=== PATIENT | male | born 2000 | race Caucasian/White ===

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

== ENCOUNTER 2019-01-17 15:34 | Emergency (ER) | payer OTHER, BC, MEDICAID ==
[2019-01-17] MEDS ORDERED: ONDANSETRON 4 MG TAB.RAPDIS PO ONE (16:01)
[2019-01-17] MEDS ORDERED: ACETAMINOPHEN 325 MG TABLET PO ONE (16:01)
--- NOTE | 2019-01-17 16:06 | ER Document Report ---
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 Patient fell off and hit his head on a milk crate in the floor. Patient is uncertain if he may have had a loss of consciousness. Patient does report nausea headache pain and left shoulder pain. Mother states that child has not been acting right and his been acting loopy which is different for him. Patient initially gave a recall of the events leading up to his fall and then reports that he did not know what he was doing in the cooler at work and what led up to his fall. I have greeted and performed a rapid initial assessment of this patient. A comprehensive ED assessment and evaluation of the patient, analysis of test results and completion of the medical decision making process will be conducted by additional ED providers. TRAVEL OUTSIDE OF THE [place] IN LAST 30 DAYS: No - Related Data Allergies/Adverse Reactions: Sulfa (Sulfonamide Antibiotics) Allergy (Verified 10/28/18 14:33) Past Medical History Renal/ Medical History: Denies: Hx Peritoneal Dialysis Psychiatric Medical History: Reports: Hx Attention Deficit Hyperactivity Disorder Physical Exam - Vital signs Vitals: Temp Pulse Resp BP Pulse Ox 98.8 F 63 18 133/58 H 97 01/17/19 15:37 01/17/19 15:37 01/17/19 15:37 01/17/19 15:37 01/17/19 15:37 - Neurological [place] Coma Scale Eye Opening: Spontaneous [place] Coma Scale Motor: Obeys Commands Notes: Patient initially gave a perfect recall of the events leading up to his fall, patient did later reports that he does not know what he was doing at work prior to his fall. Course - Vital Signs Vital signs: Temp Pulse Resp BP Pulse Ox 98.8 F 63 18 133/58 H 97 01/17/19 15:37 01/17/19 15:37 01/17/19 15:37 01/17/19 15:37 01/17/19 15:37
--- NOTE | 2019-01-17 16:47 | RADIOLOGY REPORT (SQ) ---
EXAM DESCRIPTION: SHOULDER LEFT 2 OR MORE VIEWS COMPLETED DATE/TIME: 01/17/2019 4:16 pm REASON FOR STUDY: fall, L shoulder pain COMPARISON: None. NUMBER OF VIEWS: Three views. TECHNIQUE: Internal rotation, external rotation, and Y view images acquired of the left shoulder. LIMITATIONS: None. FINDINGS: MINERALIZATION: Normal. BONES: No acute fracture or dislocation. No worrisome bone lesions. JOINTS: No dislocation. VISUALIZED LUNGS AND RIBS: No pneumothorax. No rib fracture. SOFT TISSUES: No radiopaque foreign body. OTHER: No other significant finding. IMPRESSION: NO RADIOGRAPHIC EVIDENCE OF ACUTE INJURY. TECHNICAL DOCUMENTATION: JOB ID: [id number] [employer]- All Rights Reserved Reading location - IP/workstation name: [email or web address]
--- NOTE | 2019-01-17 16:50 | RADIOLOGY REPORT (SQ) ---
EXAM DESCRIPTION: CT HEAD WITHOUT COMPLETED DATE/TIME: 01/17/2019 4:31 pm REASON FOR STUDY: fall, [place] COMPARISON: None. TECHNIQUE: Axial images acquired through the brain without intravenous contrast. Images reviewed wi th bone, brain and subdural windows. Images stored on PACS. All CT scanners at this facility use dose modulation, iterative reconstruction, and/or weight based d osing when appropriate to reduce radiation dose to as low as reasonably achievable (ALARA). [facility]: Dose Right [facility]: CareDose [facility]: Dose Right [facility]: Teradose 4D [facility]: STAR FESTIVAL RADIATION DOSE: CT Rad equipment meets quality standard of care and radiation dose reduction techniq ues were employed. CTDIvol: 53.2 mGy. DLP: 1017 mGy-cm. mGy. LIMITATIONS: None. FINDINGS: VENTRICLES: Normal size and contour. CEREBRUM: No masses. No hemorrhage. No midline shift. No evidence for acute infarction. Normal gra y/white matter differentiation. No areas of low density in the white matter. CEREBELLUM: No masses. No hemorrhage. No alteration of density. No evidence for acute infarction. EXTRAAXIAL SPACES: No fluid collections. No masses. ORBITS AND GLOBE: No intra- or extraconal masses. Normal contour of globe without masses. CALVARIUM: No fracture. PARANASAL SINUSES: No fluid or mucosal thickening. SOFT TISSUES: No mass or hematoma. OTHER: No other significant finding. IMPRESSION: No acute intracranial findings. EVIDENCE OF ACUTE STROKE: NO. COMMENT: Quality ID # [id number]: Final reports with documentation of one or more dose reduction techniques (e.g., Automated exposure control, adjustment of the mA and/or kV according to patient size, use of iterative reconstruction technique) TECHNICAL DOCUMENTATION: JOB ID: [id number] [employer]- All Rights Reserved Reading location - IP/workstation name: [email or web address]
--- NOTE | 2019-01-17 19:26 | ER Document Report ---
ED General - General Chief Complaint: Closed Head Injury Stated Complaint: POSSIBLE HEAD INJURY Time Seen by Provider: 01/17/19 16:01 Mode of Arrival: Ambulatory Notes: Patient is a 18-year-old male who presents emergency department with a chief complaint of a headache. He was at work and he was on a stepladder about 3 to 4 feet in the air and he fell and hit his head on a milk crate or the concrete. He is not sure which one. He states that he has had some confusion. His mother is at bedside and said he was not acting appropriately. He is not sure as to whether or not he lost consciousness. There is no laceration noted anywhere. He also notes that he feels his whole head on the inside hurts. He also has left shoulder pain. He has no past medical history. He does not take any medications. Denies any loss of sensation, loss of motor function, loss of bladder or bowel function, or any other complaints. TRAVEL OUTSIDE OF THE [place] IN LAST 30 DAYS: No - Related Data Allergies/Adverse Reactions: Sulfa (Sulfonamide Antibiotics) Allergy (Verified 10/28/18 14:33) Past Medical History - General Information source: Patient, Parent - Social History Smoking Status: Unknown if Ever Smoked Chew tobacco use (# tins/day): No Frequency of alcohol use: None Drug Abuse: None Family History: Reviewed & Not Pertinent Patient has suicidal ideation: No Patient has homicidal ideation: No Renal/ Medical History: Denies: Hx Peritoneal Dialysis Psychiatric Medical History: Reports: Hx Attention Deficit Hyperactivity Disorder Review of Systems - Review of Systems Notes: REVIEW OF SYSTEMS: CONSTITUTIONAL : Denies recent illness. Denies recent unintentional weight loss. Denies fever, chills, or sweats. EENT: Denies eye, ear, throat, or mouth pain, discharge, or symptoms. Denies nasal or sinus congestion. CARDIOVASCULAR: Denies chest pain. RESPIRATORY: Denies shortness of breath, cough, congestion, difficulty breathing, or wheezing. GASTROINTESTINAL: Denies nausea, vomiting, and diarrhea. Denies abdominal pain. Denies constipation. GENITOURINARY: Denies difficulty urinating, burning, blood in urine, urgency or frequency. MUSCULOSKELETAL: See HPI SKIN: Denies rash, itchiness, or lesions HEMATOLOGIC : Denies easy bruising or bleeding. LYMPHATIC: Denies swollen, painful, enlarged glands. NEUROLOGICAL: See HPI PSYCHIATRIC: Denies stress, anxiety, alteration in sleep patterns, or depression. All other systems reviewed and negative. Physical Exam - Vital signs Vitals: Temp Pulse Resp BP Pulse Ox 98.8 F 63 18 133/58 H 97 01/17/19 15:37 01/17/19 15:37 01/17/19 15:37 01/17/19 15:37 01/17/19 15:37 - Notes Notes: PHYSICAL EXAMINATION: GENERAL: Appears well, healthy, well-nourished, no acute distress. HEAD: Normocephalic, atraumatic. EYES: PERRL, conjunctiva normal, all extraocular movements intact, sclera nonicteric ENT: Moist mucous membranes. NECK: Supple, no noticeable swelling, redness, rash. Normal range of motion. LUNGS: Equal breath sounds bilaterally and clear to auscultation. No wheezes rales or rhonchi. CARDIOVASCULAR: S1-S2, regular rate, regular rhythm. Radial pulses 2+, normal. ABDOMEN: Normoactive bowel sounds. Soft, nontender, no guarding, no rebound tenderness, and no masses palpated. EXTREMITIES: Normal strength and range of motion, no pitting or edema. No cyanosis. NEUROLOGICAL: Moves all extremities upon command. Strength 5/5 in all extremities. PSYCH: Normal mood, normal affect. SKIN: Warm, dry. No rash, lesions, ulcerations noted. Normal skin turgor. Course - Re-evaluation Re-evalutation: 01/17/19 19:45 CT of the head and left shoulder x-ray that was ordered and triage are both negative. He most likely suffered a concussion. I discussed signs and symptoms of a concussion with the mother and patient. Follow-up precautions were given. He will follow-up with his primary care provider for Workmen's Compensation. I do not suspect the patient has any life-threatening etiology at this time. Full neurological exam is intact. No neurological deficits noted. Verbal discharge instructions were given to the patient. They verbalized understanding. They are stable for discharge. - Vital Signs Vital signs: Temp Pulse Resp BP Pulse Ox 98.8 F 63 18 133/58 H 97 01/17/19 15:37 01/17/19 15:37 01/17/19 15:37 01/17/19 15:37 01/17/19 15:37 Discharge - Discharge Clinical Impression: Fall Qualifiers: Encounter type: initial encounter Qualified Code(s): W19.XXXA - Unspecified fall, initial encounter Concussion Qualifiers: Encounter type: initial encounter Loss of consciousness presence/duration: with LOC of unspecified duration Qualified Code(s): S06.0X9A - Concussion with loss of consciousness of unspecified duration, initial encounter Condition: Stable Disposition: HOME, SELF-CARE Additional Instructions: You were seen today in the emergency department after a fall. Your x-ray and CT scan are normal. You most likely suffered a concussion. You can take Tylenol 1000 mg every 6 hours for your pain. Please follow-up with your primary care provider in regards to this visit. Please fill out your Workmen's Compensation. Concussion You have suffered a concussion -- a temporary loss of certain brain functions due to a mild brain injury. The recovery is usually rapid and complete. The temporary problems occurring with a concussion can include loss of consciousness, dizziness, nausea, vomiting, and confusion. Repeat concussions can cause brain damage. In the future, avoid activities that will cause a blow to your head. Wear a helmet for sports such as snowboarding, biking, or skating. It's important that someone be with you for the first 24 hours. During this time, do not exercise or drive a vehicle. Do not take any pain medication stronger than acetaminophen unless prescribed by the physician. Any significant changes should be reported immediately to the physician. Signs of a problem may include: (1) Mental confusion (2) Incoordination or staggering (3) Repeated or forceful vomiting (4) Clear or bloody drainage from ear, mouth, or nose (5) Severe headache, not relieved by acetaminophen or prescribed pain medication (6) Failure to improve in 24 hours
[2019-01-17 20:26] VITALS: BP 118/62
== END 2019-01-17 20:25 | disposition home or self-care (01) ==
LOC: ER 15:34
DX: S06.0X9A Concussion with loss of consciousness of unspecified duration, initial encounter (principal); R51 Headache; M25.512 Pain in left shoulder; R41.0 Disorientation, unspecified; W11.XXXA Fall on and from ladder, initial encounter; Y93.89 Activity, other specified; Y92.524 Gas station as the place of occurrence of the external cause; Y99.0 Civilian activity done for income or pay; Z88.2 Allergy status to sulfonamides
CPT/HCPCS: 99284; 73030; 70450; S0119

== ENCOUNTER 2020-05-17 17:18 | Emergency (ER) | payer BC, MEDICAID ==
[2020-05-17 17:32] VITALS: BP 142/78
--- NOTE | 2020-05-17 18:40 | ER Document Report ---
HPI - HPI Time Seen by Provider: 05/17/20 17:30 Pain Level: 2 Notes: 19-year-old male patient presents emergency department chief complaint of right ear pain. Patient reports this is been ongoing for about a week now. He states he is tried taking cyoh-xly-owobtwu medications without relief. He states he now has worsening pain and drainage from his ear. He is reporting fevers as high as 102 today. Denies any nausea, vomiting, chest pain. - ROS Systems Reviewed and Negative: Yes All other systems reviewed and negative - CONSTITUTIONAL Constitutional: REPORTS: Fever - EENT EENT: REPORTS: Ear Pain - Right ear - REPRODUCTIVE Reproductive: DENIES: : Past Medical History - General Information source: Patient - Social History Smoking Status: Never Smoker Family History: Reviewed & Not Pertinent Patient has homicidal ideation: No Renal/ Medical History: Denies: Hx Peritoneal Dialysis Psychiatric Medical History: Reports: Hx Attention Deficit Hyperactivity Disorder Surgical Hx: Negative - Immunizations Immunizations up to date: Yes Vertical Provider Document - CONSTITUTIONAL Notes: PHYSICAL EXAMINATION: GENERAL: Well-appearing, well-nourished and in no acute distress. HEAD: Atraumatic, normocephalic. EYES: Pupils equal round extraocular movements intact, conjunctiva are normal. ENT: Nares patent, right TM erythematous, retracted, right canal with significant amount of edema and erythema. Left TM and canal unremarkable. NECK: Normal range of motion, palpable cervical lymphadenopathy to the right side. LUNGS: No respiratory distress, lung sounds clear and equal bilaterally. Musculoskeletal: Normal range of motion NEUROLOGICAL: Normal speech, normal gait. PSYCH: Normal mood, normal affect. SKIN: Warm, Dry, normal turgor, no rashes or lesions noted. - INFECTION CONTROL TRAVEL OUTSIDE OF THE [place] IN LAST 30 DAYS: No Course - Re-evaluation Re-evalutation: Patient appears well, nontoxic. He does appear to be in a moderate amount of pain. He does have otitis media and otitis externa. Patient will be placed on appropriate medications. ED return precautions discussed, patient verbalized understanding and agreement plan. - Vital Signs Vital signs: Temp Pulse Resp BP Pulse Ox 100.4 F 102 H 16 142/78 H 99 05/17/20 17:30 05/17/20 17:30 05/17/20 17:30 05/17/20 17:30 05/17/20 17:30 Discharge - Discharge Clinical Impression: Otitis media Qualifiers: Otitis media type: suppurative Chronicity: acute Laterality: right Recurrence: not specified as recurrent Spontaneous tympanic membrane rupture: without spontaneous rupture Qualified Code(s): H66.001 - Acute suppurative otitis media without spontaneous rupture of ear drum, right ear Otitis externa Qualifiers: Otitis externa type: unspecified type Chronicity: acute Laterality: right Qualified Code(s): H60.501 - Unspecified acute noninfective otitis externa, right ear Condition: Stable Disposition: HOME, SELF-CARE Instructions: Use of Ear Drops ([facility]), Oral Narcotic Medication ([facility]), Otitis Externa ([facility]), Otitis Media ([facility]) Additional Instructions: Take medications as prescribed. Complete the antibiotics even if your symptoms resolve. You may also safely take ibuprofen 600 mg every 6 hours along with the medications I have prescribed. No driving while taking the narcotic pain medication. Return if significantly worsening. Prescriptions: Hydrocodone/Acetaminophen [[place] 5-325 mg Tablet] 1 tab PO Q6HP PRN #10 tablet PRN Reason: Amoxicillin 1 tab PO TID #30 tab Ciprofloxacin HCl/Dexameth [Ciprodex Otic Suspension 7.5 ml Bottle] 4 drop OD BID 10 Days #1 bottle Forms: Return to Work Referrals: FREDDIE LOOMIS PA-C [Primary Care Provider] - Follow up as needed
== END 2020-05-17 18:54 | disposition home or self-care (01) ==
LOC: ER 17:18
DX: H66.001 Acute suppurative otitis media without spontaneous rupture of ear drum, right ear (principal); H60.501 Unspecified acute noninfective otitis externa, right ear; H92.01 Otalgia, right ear; R50.9 Fever, unspecified
CPT/HCPCS: 99283